=== PATIENT | male | born 1965 | race Caucasian/White ===

== ENCOUNTER → 2023-07-07 15:34 | Outpatient (REF) | payer OTHER, SELFPAY | LOC: HWRAD 15:34 | PROVIDERS: ATTENDING PHYSICIAN Otolaryngology; FAMILY PHYSICIAN Family Medicine | DX: J32.0 Chronic maxillary sinusitis (principal); R51.9 Headache, unspecified | CPT/HCPCS: 70486 ==

== ENCOUNTER 2023-07-07 18:13 | Emergency (ER) | payer OTHER, SELFPAY ==
[2023-07-07 18:20] VITALS: BP 140/82
[2023-07-07 18:38] LABS: % Basophils 0.6 % (0-2); % Immature Granulocytes 0.3 % (0-0.5); % Lymphocytes 23.3 % (20.5-51.1); % Neutrophils 63.8 % (42.2-75.2); Absolute Basophils 0.1 10^3/uL (0-0.2); Absolute Eosinophils 0.8 10^3/uL (0-0.7); Absolute Monocytes 0.8 10^3/uL (0.1-0.6); Absolute Neutrophils 8.1 10^3/uL (1.4-6.5); Hematocrit 43.1 % (39.0-52.0); Mean Corp Hgb Conc. 34.8 g/dL (33.0-37.0); Mean Corpuscular Hgb 29.6 pg (27.0-31.0); Mean Platelet Volume 10.4 fL (7.4-10.4); Nucleated Red Blood Cells % 0 % (-); Platelet Count 227 10^3/uL (130-400); Red Blood Cell Count 5.07 10^6/uL (4.70-6.10); Red Cell Dist. Width 12.9 % (11.5-14.5); White Blood Cell Count 12.8 10^3/uL (4.8-10.8)
[2023-07-07 18:55] LABS: ALT (SGPT) 36 U/L (0-50); AST (SGOT) 37 U/L (17-59); Albumin 4.4 g/dl (3.5-5.0); Alkaline Phosphatase 74 U/L (38-126); Blood Urea Nitrogen 19 mg/dl (9-20); Calcium 9.4 mg/dl (8.4-10.2); Carbon Dioxide 30 mmol/L (22-30); Chloride 100 mmol/L (98-107); Glucose 152 mg/dl (70-99); Potassium 4.1 mmol/L (3.5-5.1); Sodium 141 mmol/L (135-145); Total Bilirubin 0.5 mg/dl (0.2-1.3); Total Protein 7.1 g/dl (6.3-8.2); eGFR > 60.00
[2023-07-07 19:00] LABS: Troponin I < 0.012 ng/ml
--- NOTE | 2023-07-07 20:00 | ED.GENMED ---
History of Present Illness
<Monique Ward PA-C - Last Filed: 07/08/23 00:25>
General
Chief Complaint: Cardiac Symptoms
Source: patient and spouse
Exam Limitations: none
Time Seen by Provider: 07/07/23 19:31
Nursing documentation reviewed up to this point in time: agreed with
Travel History
Have you had any contact with someone who has COVID-19?: No
Do you have any symptoms of coronavirus? Fever > 100 degrees, chills, cough, shortness of breath, sore throat, loss of taste or smell, muscle aches, or headache?: No
History of Present Illness
History of Present Illness:
Patient is a 58-year-old male with history hypertension, hyperlipidemia, CVA presenting for evaluation of lightheadedness with associated heart palpitations earlier today. 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
when he became lightheaded. He descended from the ladder and sat down and felt that his heart 'was not beating correctly '. He then ate lunch and began to feel better. At that time he states that he had about a 30 second episode of chest pain.
He states that it was a pressure type feeling at a very pinpoint location in his left chest�patient used his pointer finger to pinpoint exact location of pain approximately 8 hours ago lasting about 30 seconds. He also reports associated clamminess
of his hands. Patient states that the symptoms lingered for about an hour and then resolved. At this point patient is mostly asymptomatic, just reports some tiredness.
Patient denied any associated shortness of breath, fever, chills, back pain, numbness/tingling, weakness. He has no headache or visual changes.
Patient was followed by Dr. Navarro many years ago following his stroke. He has not seen cardiology since.
Patient also reports some facial problems that he has been dealing with. He has intermittent pain in his left cheek which is being followed by ENT. He had a CT scan of his sinuses performed earlier this morning.
Past History
<Monique Ward PA-C - Last Filed: 07/08/23 00:25>
Past History
ED Past Medical History: Cancer (Skin Ca Melanoma), CVA, GERD, HTN, Hypercholesterolemia and Other (Headaches/MIgraines, Sleep apnea, Adrenal insufficiency, )
ED Past Surgical History: Orthopedic (Left wrist ganglia) and Other (Hernia with mesh)
Social History
Tobacco: Former smoker
Alcohol: Daily (Beer/Whisky 2 glasses)
Drug: None
Personal:
Living: with family
Phy Exam
<Monique Ward PA-C - Last Filed: 07/08/23 00:25>
Physical Exam
Physical Exam:
General: In no apparent distress, nontoxic-appearing
HEENT: Atraumatic, normocephalic; pupils equal round reactive to light bilaterally, no tenderness to sinuses, protecting airway
Neck: appears supple, no JVD, trachea midline
CV: Regular rate and rhythm, heart sounds normal, no evidence of cyanosis; anterior chest wall nontender to palpation, chest pain nonreproducible
Resp: No evidence of respiratory distress, lungs clear bilaterally
Abd: Soft, nontender in all 4 quadrants, non-distended
Extremities: No deformities, no evidence of cyanosis or edema
Neuro: alert and oriented x [address], speech normal, no focal motor deficit
Psych: Normal affect
Skin: Intact, no rashes
Scores
<Monique Ward PA-C - Last Filed: 07/08/23 00:25>
Heart Score for Chest Pain Patients
STEMI patient?: No
History: Slightly or Non-Suspicious
ECG: Normal
Age: >45 - <65 years
Risk Factors: 1 or 2 Risk Factors
Troponin: </= Normal Limit
Heart Score for Chest Pain Patients: 2
Heart Score Risk: 2.5% MACE over next 6 weeks
Course
<Monique Ward PA-C - Last Filed: 07/08/23 00:25>
Orders/Labs/Results
Orders:
Orders
07/07/23 18:22
Electrocardiogram (*1) Urgent
Reason for Study: Chest Pain
EKG- Treatment ONCE
07/07/23 18:26
Complete Blood Count/With Diff Urgent
Comprehensive Metabolic Panel Urgent
Troponin I Urgent
Abnormal Lab Results
07/07/23
18:26
WBC 12.8 H 10^3/uL
(4.8-10.8)
Absolute Neuts (auto) 8.1 H 10^3/uL
(1.4-6.5)
Absolute Monos (auto) 0.8 H 10^3/uL
(0.1-0.6)
Absolute Eos (auto) 0.8 H 10^3/uL
(0-0.7)
Glucose 152 H mg/dl
(70-99)
07/07/23 18:26
07/07/23 18:26
Vital Signs
Initial and Last Documented VS:
Initial Vital Signs
Temp Pulse Resp BP Pulse Ox
98 F 75 16 140/82 99
07/07/23 18:20 07/07/23 18:20 07/07/23 18:20 07/07/23 18:20 07/07/23 18:20
Last Documented Vital Signs
Temp Pulse Resp BP Pulse Ox
98 F 67 16 135/89 98
07/07/23 18:20 07/07/23 20:10 07/07/23 18:20 07/07/23 20:10 07/07/23 20:10
<Christopher Hopkins DO - Last Filed: 07/07/23 20:38>
Orders/Labs/Results
Orders:
Orders
07/07/23 18:22
Electrocardiogram (*1) Urgent
Reason for Study: Chest Pain
EKG- Treatment ONCE
07/07/23 18:26
Complete Blood Count/With Diff Urgent
Comprehensive Metabolic Panel Urgent
Troponin I Urgent
Abnormal Lab Results
07/07/23
18:26
WBC 12.8 H 10^3/uL
(4.8-10.8)
Absolute Neuts (auto) 8.1 H 10^3/uL
(1.4-6.5)
Absolute Monos (auto) 0.8 H 10^3/uL
(0.1-0.6)
Absolute Eos (auto) 0.8 H 10^3/uL
(0-0.7)
Glucose 152 H mg/dl
(70-99)
07/07/23 18:26
07/07/23 18:26
Vital Signs
Initial and Last Documented VS:
Initial Vital Signs
Temp Pulse Resp BP Pulse Ox
98 F 75 16 140/82 99
07/07/23 18:20 07/07/23 18:20 07/07/23 18:20 07/07/23 18:20 07/07/23 18:20
Last Documented Vital Signs
Temp Pulse Resp BP Pulse Ox
98 F 67 16 135/89 98
07/07/23 18:20 07/07/23 20:10 07/07/23 18:20 07/07/23 20:10 07/07/23 20:10
<Monique Ward PA-C - Last Filed: 07/08/23 00:25>
MDM/Problems Addressed
Differential Diagnosis Includes:
Arrhythmia, dehydration, hypoglycemia, anxiety, viral illness, vasovagal syncope, doubt ACS
MDM/Problems Addressed:
Patient is a 58-year-old male with history CVA, hypertension, hyperlipidemia presenting for evaluation of episode of lightheadedness and palpitations earlier today this was associated with a 30 second bout of chest pain in the left chest. The
symptoms started while he was on a ladder for work and lasted for about an hour. Since arriving to the emergency department he is essentially asymptomatic�only reporting fatigue. His vitals are stable, afebrile. Physical exam as documented above.
EKG shows normal sinus rhythm without any signs of ischemia. Labs show mild leukocytosis of 12.8�nonspecific finding. Otherwise no clinically significant abnormalities on CBC or CMP. Troponin is negative. Given symptoms occurred about 8 hours
ago�this is sufficient to rule out acute NV.
He is well-appearing, in no apparent distress. He remains asymptomatic. Possibly due to dehydration/hypoglycemia earlier versus brief cardiac arrhythmia. Workup here has been unremarkable. He has previously followed with Dr. Navarro. He is
stable for discharge with cardiology follow-up in the next few days. Return precautions discussed at length. Patient comfortable this plan. All questions answered.
Chronic conditions affecting care:
Prior CVA, hypertension, hyperlipidemia
Acute Exacerbation and/or Progression of Chronic Illness:
Acutely hypertensive
<Monique Ward PA-C - Last Filed: 07/08/23 00:25>
*Pulse Oximetry
Patient hypoxic: no
*EKG
Interpreted by ED Provider?: Yes
EKG Intrepretation Date: 07/08/23
Interpretation: normal
Comparison EKG: changes noted
Heart Rate: 65
Rate: normal
Rhythm: sinus
Ischemia: no ischemia
*Mold Blower Interpretation
Rate: Mold Blower- N/A
*Critical Care Note
Total Time (30-74mins, 75-104mins- exclusive of procedures): Not Applicable
Data Reviewed
Review of Other/Old Records Reveals: Labs and Records
Source: patient, family and previous hospital records
ED Attending Note
<Monique Ward PA-C - Last Filed: 07/08/23 00:25>
-
Portions of this chart may have been created with voice recognition software.� Occasional wrong word or��sound alike� substitutions may have occurred due to the inherent limitations of voice recognition software.
<Christopher Slater Kellie, DO - Last Filed: 07/07/23 20:38>
ED Attending Note
Patient seen and examined by attending physician: Yes
I performed the substantive portion of visit, reviewed & personally made and approve the management plan that is documented in note by myself or MIRANDA.: Yes
I performed a history and physical exam of patient and discussed management with resident, I reviewed resident's note and agree with documented findings and plan of care.: Yes
ED Attending Note:
I evaluated patient at bedside. He is currently very well-appearing. He uses 1 finger to indicate that he had some sharp stabbing pain that lasted for seconds twice approximately 8 hours ago. This was associate with palpitations. ED workup
unremarkable. He also was concerned of an intraoral discomfort�I personally viewed CT imaging and see no abnormality of the left maxillary sinus but official report pending. To follow-up Dr. Navarro.
Discharge Plan
Departure
Patient Disposition: Home (Routine Discharge)
Date of Disposition: 07/07/23
Time of Disposition: 20:25
Patient with high blood pressure during this ER visit?: No
Condition: Good
Covid-19: Not Applicable
Discharge Problem:
Lightheadedness, History of palpitations
Instructions: Palpitations (DC), Chest Pain DCA Follow Up
Prescriptions:
No Action
atorvastatin 20 MG tablet
20 mg PO DAILY
aspirin 81 MG tablet,chewable
81 mg PO DAILY
amlodipine 5 MG tablet
5 mg PO DAILY
diphenhydramine HCl [Banophen] 25 MG capsule
25 mg PO PRN PRN (Reason: bee sting)
Patient Comments:
pt took Benadryl last PM for bee sting- right arm
lisinopril-hydrochlorothiazide 20-25 mg Tablet
1 tab PO DAILY
ibuprofen 200 mg tablet
400 - 600 mg PO Q6HPRN PRN (Reason: moderate pain) Qty: 1 0RF
polyethylene glycol 3350 [Miralax] 17 gram/dose powder
4 g PO DAILY Qty: 119 0RF
Rx Instructions:
Recommend starting a laxative such as MiraLAX on postoperative day 1 or 2 if no bowel movement after surgery as long as no nausea vomiting and passing gas
acetaminophen [Tylenol Extra Strength] 500 mg tablet
1,000 mg PO Q6HPRN PRN (Reason: mild pain) Qty: 1 0RF
oxycodone 5 mg tablet
5 mg PO Q4HPRN PRN (Reason: breakthrough/severe pain) Qty: 10 0RF
Referrals:
David Navarro MD [Active] -
Yann López MD [Family Provider] -
Activity Restrictions/Additional Instructions:
-Return to the emergency department with any chest pain, shortness of breath, severe back pain, persistent dizziness/lightheadedness, numbness/tingling, weakness, high fevers, worsening in current symptoms, or any other concerns
-As discussed - you should follow-up with cardiology for further evaluation of cardiac symptoms. Further testing may be required.
-It is important to stay well hydrated
-As discussed- we did not visualize anything obvious on your CT scan of your sinuses today. You should continue to follow with ENT for further management
Interventions
Interventions:
*Risk Screen - Suicide Last Done: 07/07/23 20:38
*General Assessment Last Done: 07/07/23 20:38
*Neglect/Abuse Screening Last Done: 07/07/23 20:38
ED- Fall Risk Assessment Last Done: 07/07/23 20:11
*Nursing Disposition Last Done: 07/07/23 20:38
ED- Pulmonary Assessment Last Done: 07/07/23 20:11
ED- Cardiac Assessment Last Done: 07/07/23 20:11
Discharge Date and Time
Discharge Date/Time: 07/07/23 20:41
Print Language: WALLISIAN
[2023-07-07 20:10] VITALS: BP 135/89
== END 2023-07-07 20:41 | disposition home or self-care (01) ==
LOC: EMR 18:13
PROVIDERS: Emergency Medicine; EMERGENCY PHYSICIAN Emergency Medicine; FAMILY PHYSICIAN Family Medicine
DX: R42 Dizziness and giddiness (principal); R00.2 Palpitations; R07.89 Other chest pain; R53.83 Other fatigue; R23.1 Pallor; I10 Essential (primary) hypertension; E78.00 Pure hypercholesterolemia, unspecified; Y99.0 Civilian activity done for income or pay; Z86.73 Personal history of transient ischemic attack (TIA), and cerebral infarction without residual deficits; Z87.891 Personal history of nicotine dependence
CPT/HCPCS: 99284; 80053; 84484; 85025; 93005

== ENCOUNTER → 2023-07-28 10:41 | Outpatient (REF) | payer OTHER, SELFPAY | LOC: RCS 10:41 | PROVIDERS: ATTENDING PHYSICIAN Internal Medicine Cardiovascular Disease; FAMILY PHYSICIAN Family Medicine | DX: R07.9 Chest pain, unspecified (principal) | CPT/HCPCS: 93017; 93350 ==

== ENCOUNTER → 2023-08-08 09:08 | Outpatient (REF) | payer OTHER, SELFPAY | LOC: MRI 3T 09:08 | PROVIDERS: ATTENDING PHYSICIAN Student in an Organized Health Care Education/Training Program | DX: G62.9 Polyneuropathy, unspecified (principal) | CPT/HCPCS: 70553; A9575 ==

== ENCOUNTER 2023-08-20 16:44 | Emergency (ER) | payer OTHER, SELFPAY ==
[2023-08-20 16:48] VITALS: BP 134/88
--- NOTE | 2023-08-20 17:49 | ED.GENMED ---
History of Present Illness
General
Chief Complaint: Throat Problem
Source: patient and spouse
Exam Limitations: none
Time Seen by Provider: 08/20/23 17:23
Nursing documentation reviewed up to this point in time: agreed with
Travel History
Have you had any contact with someone who has COVID-19?: No
Do you have any symptoms of coronavirus? Fever > 100 degrees, chills, cough, shortness of breath, sore throat, loss of taste or smell, muscle aches, or headache?: No
History of Present Illness
History of Present Illness:
58-year-old male presents the emergency department complaining of sore throat and headache. Sore throat began about 2 days ago. He had swelling on the left side starting in January, and notes some swelling on the right side. He has seen ENT, and
is scheduled to see rheumatology. He was seen at urgent care today and sent to the emergency department.
Past History
Past History
ED Past Medical History: Cancer (Skin Ca Melanoma), CVA, GERD, HTN, Hypercholesterolemia and Other (Headaches/MIgraines, Sleep apnea, Adrenal insufficiency, )
ED Past Surgical History: Orthopedic (Left wrist ganglia) and Other (Hernia with mesh)
Social History
Tobacco: Former smoker
Alcohol: Daily (Beer/Whisky 2 glasses)
Drug: None
Personal:
Living: with family
Review of Systems
Review of Systems
Allergies reviewed?: Yes
All Other Systems: Not applicable
Constitutional: Reports no symptoms
EENT: Reports sore throat
Respiratory: Reports no symptoms
Cardiac: Reports no symptoms
ABD/GI: Reports no symptoms
: Reports no symptoms
Musculoskeletal: Reports no symptoms
Skin: Reports no symptoms
Neurological: Reports no symptoms
Endocrine: Reports no symptoms
Hematologic/Lymphatic: Reports no symptoms
Psychiatric: Reports no symptoms
Phy Exam
Physical Exam
Physical Exam:
Physical Exam
General: no apparent distress, not acutely ill
Neck: supple. no meningeal signs. normal posterior pharynx
Heart: s1/s2 regular rate and rhythm, no murmur. equal radial
pulses.
HEENT: Pupils equal round reactive to light, EOMI
Lungs: no acute respiratory distress. clear bilaterally
Abdomen: normal bowel sounds. not tender. no CVAT
Neuro: alert and oriented. no focal neurological deficits cranial nerves II through XII intact
Skin: no rash
Psychiatric: well kept. interactive and cooperative
Extremities: no edema. no calf tenderness. negative homans. good distal pulses
Course
Orders/Labs/Results
Orders:
Orders
08/20/23 17:45
CT Neck With Iv Contrast Urgent
Comment:
Reason For Exam: neck and facial swelling worse last 2 days
IV Insert/Care/Rem.- Treatment PRN
08/20/23 17:54
CT Head W/o Iv Contrast Urgent
Comment:
Reason For Exam: headache
08/20/23 18:18
Complete Blood Count/With Diff Urgent
Comprehensive Metabolic Panel Urgent
Influenza A+B Rapid Molecular Urgent
AMEE Source: Nasal Swab
Specimen Description:
Rapid Strep Group A Urgent
AMEE Source: Throat/Pharynx
Specimen Description:
Date Specimen was Collected: 08/20/23
Time Specimen was Collected: 17:49
08/20/23 19:57
Clindamycin HCl [Cleocin] 450 mg PO NOW STA
Abnormal Lab Results
08/20/23
18:18
WBC 12.2 H 10^3/uL
(4.8-10.8)
Absolute Neuts (auto) 8.4 H 10^3/uL
(1.4-6.5)
Absolute Monos (auto) 0.8 H 10^3/uL
(0.1-0.6)
08/20/23 18:18
08/20/23 18:18
Vital Signs
Initial and Last Documented VS:
Initial Vital Signs
Temp Pulse Resp BP Pulse Ox
97.8 F 74 16 134/88 100
08/20/23 16:48 08/20/23 16:48 08/20/23 16:48 08/20/23 16:48 08/20/23 16:48
Last Documented Vital Signs
Temp Pulse Resp BP Pulse Ox
97.8 F 74 16 124/79 97
08/20/23 16:48 08/20/23 16:48 08/20/23 16:48 08/20/23 18:23 08/20/23 18:23
MDM/Problems Addressed
Differential Diagnosis Includes:
Parotid gland abscess, retropharyngeal abscess, tonsillar abscess
MDM/Problems Addressed:
58-year-old male with left parotid duct stone, nonobstructing, no signs of abscess. Treat with clindamycin, continue sour candies and lemon. Follow-up with ENT.
*Radiology
Radiology exam reviewed: radiology read reviewed (CT head no acute findings, CT neck left parotid gland stone, no abscess)
*Pulse Oximetry
Patient hypoxic: no
*EKG
Interpreted by ED Provider?: NA
*Welding Machine Operator Thermit Interpretation
Rate: Welding Machine Operator Thermit- N/A
*Critical Care Note
Total Time (30-74mins, 75-104mins- exclusive of procedures): Not Applicable
Patient Management
Social determinants of health affecting care: Living situation and Strong social support
Escalation/DeEscalation of care consider admission/obs:
Admit not indicated
ED Attending Note
-
Portions of this chart may have been created with voice recognition software.� Occasional wrong word or��sound alike� substitutions may have occurred due to the inherent limitations of voice recognition software.
Discharge Plan
Departure
Patient Disposition: Home (Routine Discharge)
Date of Disposition: 08/20/23
Time of Disposition: 19:58
Patient with high blood pressure during this ER visit?: Yes
Condition: Good
Discharge Problem:
Calculus of parotid gland duct
Instructions: Salivary Gland Stones, BLOOD PRESSURE
Prescriptions:
New
clindamycin HCl 150 mg capsule
450 mg PO TID Qty: 63 0RF
No Action
atorvastatin 20 MG tablet
20 mg PO DAILY
aspirin 81 MG tablet,chewable
81 mg PO DAILY
amlodipine 5 MG tablet
5 mg PO DAILY
diphenhydramine HCl [Banophen] 25 MG capsule
25 mg PO PRN PRN (Reason: bee sting)
Patient Comments:
pt took Benadryl last PM for bee sting- right arm
lisinopril-hydrochlorothiazide 20-25 mg Tablet
1 tab PO DAILY
ibuprofen 200 mg tablet
400 - 600 mg PO Q6HPRN PRN (Reason: moderate pain) Qty: 1 0RF
polyethylene glycol 3350 [Miralax] 17 gram/dose powder
4 g PO DAILY Qty: 119 0RF
Rx Instructions:
Recommend starting a laxative such as MiraLAX on postoperative day 1 or 2 if no bowel movement after surgery as long as no nausea vomiting and passing gas
acetaminophen [Tylenol Extra Strength] 500 mg tablet
1,000 mg PO Q6HPRN PRN (Reason: mild pain) Qty: 1 0RF
oxycodone 5 mg tablet
5 mg PO Q4HPRN PRN (Reason: breakthrough/severe pain) Qty: 10 0RF
Referrals:
Andrew Kim MD [Active] - Call in 1-3 days for appt
Kaylah Rosales MD, Resident [Family Provider] -
Interventions
Interventions:
*Risk Screen - Suicide Last Done: 08/20/23 16:48
*General Assessment Last Done: 08/20/23 16:48
*Neglect/Abuse Screening Last Done: 08/20/23 16:48
ED- Fall Risk Assessment Last Done: 08/20/23 18:22
*ED COVID-19 Vaccine History Last Done: 08/20/23 18:22
ED-EENT Assessment Last Done: 08/20/23 18:22
ED- Pulmonary Assessment Last Done: 08/20/23 18:22
Discharge Date and Time
Print Language: NAURUAN
[2023-08-20 18:20] VITALS: BMI 28.0
[2023-08-20 18:23] VITALS: BP 124/79
[2023-08-20 18:34] LABS: % Basophils 0.6 % (0-2); % Eosinophils 2.6 % (0-6); % Immature Granulocytes 0.2 % (0-0.5); % Lymphocytes 21.1 % (20.5-51.1); % Monocytes 6.3 % (1.7-9.3); % Neutrophils 69.2 % (42.2-75.2); Absolute Basophils 0.1 10^3/uL (0-0.2); Absolute Eosinophils 0.3 10^3/uL (0-0.7); Absolute Lymphocytes 2.6 10^3/uL (1.2-3.4); Absolute Monocytes 0.8 10^3/uL (0.1-0.6); Absolute Neutrophils 8.4 10^3/uL (1.4-6.5); Hemoglobin 15.5 g/dL (13.0-18.0); Mean Corp Hgb Conc. 33.7 g/dL (33.0-37.0); Mean Corpuscular Hgb 29.2 pg (27.0-31.0); Mean Corpuscular Volume 86.8 fL (80.0-94.0); Mean Platelet Volume 10.4 fL (7.4-10.4); Nucleated Red Blood Cells % 0 % (-); Platelet Count 266 10^3/uL (130-400); Red Cell Dist. Width 12.8 % (11.5-14.5); White Blood Cell Count 12.2 10^3/uL (4.8-10.8)
[2023-08-20 18:48] LABS: ALT (SGPT) 38 U/L (0-50); AST (SGOT) 34 U/L (17-59); Albumin 4.3 g/dl (3.5-5.0); Alkaline Phosphatase 80 U/L (38-126); Blood Urea Nitrogen 13 mg/dl (9-20); Calcium 9.6 mg/dl (8.4-10.2); Carbon Dioxide 28 mmol/L (22-30); Chloride 102 mmol/L (98-107); Estimated Creatinine Clearance 103 ml/min; Glucose 90 mg/dl (70-99); Potassium 3.6 mmol/L (3.5-5.1); Sodium 136 mmol/L (135-145); Total Bilirubin 0.9 mg/dl (0.2-1.3); Total Protein 6.8 g/dl (6.3-8.2); eGFR > 60.00
[2023-08-20] MEDS: CLEOCIN 450 MG PO (20:08)
== END 2023-08-20 20:26 | disposition home or self-care (01) ==
LOC: EMR 16:44
PROVIDERS: EMERGENCY PHYSICIAN Emergency Medicine; FAMILY PHYSICIAN Student in an Organized Health Care Education/Training Program
DX: K11.5 Sialolithiasis (principal); I10 Essential (primary) hypertension; Z87.891 Personal history of nicotine dependence
CPT/HCPCS: 99285; 70450; 70491; 80053; 85025; 87070; 87502; 87880; Q9967

== ENCOUNTER → 2023-12-05 07:31 | Outpatient (REF) | payer OTHER, SELFPAY | LOC: PAVMRI 07:31 | PROVIDERS: REFERRING PHYSICIAN Otolaryngology Plastic Surgery within the Head & Neck | DX: K11.5 Sialolithiasis (principal); R13.12 Dysphagia, oropharyngeal phase; R09.A2 Foreign body sensation, throat | CPT/HCPCS: 70543; A9575 ==

== ENCOUNTER 2024-04-30 06:28 | Day surgery (SDC) | payer OTHER, SELFPAY | END 2024-04-30 09:46 | disposition home or self-care (01) | LOC: GI 06:28 | PROVIDERS: ATTENDING PHYSICIAN Internal Medicine Gastroenterology | DX: Z12.11 Encounter for screening for malignant neoplasm of colon (principal); D12.3 Benign neoplasm of transverse colon; D12.5 Benign neoplasm of sigmoid colon; K57.30 Diverticulosis of large intestine without perforation or abscess without bleeding; K64.8 Other hemorrhoids; Z86.0100 Personal history of colon polyps, unspecified; R09.82 Postnasal drip; K21.00 Gastro-esophageal reflux disease with esophagitis, without bleeding | CPT/HCPCS: 45385; 43235; 88305 ==

== ENCOUNTER → 2024-09-20 11:14 | Outpatient (REF) | payer OTHER, SELFPAY | LOC: HWRAD 11:14 | PROVIDERS: ATTENDING PHYSICIAN Internal Medicine | DX: N50.812 Left testicular pain (principal) | CPT/HCPCS: 76870; 93976 ==